=== PATIENT | male | born 1980 | race Caucasian/White ===

== ENCOUNTER 2020-04-27 10:24 | Observation (INO) ==
[2020-04-27] MEDS ORDERED: Nitro 2% OINT (Nitroglycerin) 1 INCH/PAK TOPICAL ONE ×2 (11:27→12:12)
[2020-04-27] MEDS ORDERED: Aspirin EC 81 mg TAB.EC (enteric coated) PO ONE (11:27)
[2020-04-27 11:55] LABS: ABS Eosinophils 0.1 10^3/ul (0-0.6); ABS Lymphocytes 1.8 10^3/ul (1.0-4.8); ABS Monocytes 0.4 10^3/ul (0-0.8); ABS Neutrophils 5.8 10^3/ul (1.5-7.7); Eosinophil % 1.1 %; Hematocrit 41 % (42-52); Hemoglobin 13.8 g/dL (14.0-18.0); Lymphocyte % 22.1 %; Mean Corpuscular HGB Conc 33 g/dL (31-36); Mean Corpuscular Hemoglobin 24 pg (27-31); Mean Corpuscular Volume 71 fL (80-94); Mean Platelet Volume 9.4 fL (7.4-10.4); Nucleated Red Blood Cells % 0.1; Platelet Count 246 10^3/uL (150-450); Red Blood Count 5.81 10^6 /uL (4.18-5.48); Red Cell Distribution Width 17 % (10-15); White Blood Count 8.1 10^3/uL (3.5-10.8)
[2020-04-27 12:19] LABS: Albumin 3.9 g/dL (3.2-5.2); Albumin/Globulin Ratio 1.2 (1-3); BUN/Creatinine Ratio 20.2 (8-20); EGFR African American 115.1 (>60); EGFR Non-African American 95.2 (>60); Globulin 3.2 g/dL (2-4); Magnesium 1.5 mg/dL (1.9-2.7); Potassium 3.2 mmol/L (3.5-5.0); Total Bilirubin 0.5 mg/dL (0.2-1.0); Total Protein 7.1 g/dL (6.4-8.9)
[2020-04-27 12:20] LABS: Troponin I 0.01 ng/mL (<0.03)
[2020-04-27] MEDS ORDERED: NS 0.9% 1000 ml BAG 1,000 ML IV ONE (12:33)
[2020-04-27] MEDS ORDERED: Potassium Chloride LIQUID 20 MEQ/15 ML LIQUID PO ONE (12:34)
[2020-04-27] MEDS ORDERED: Magnesium Sulfate 2 gm BAG 2 GM/50 ML BAG IVPB ONE (12:44)
[2020-04-27 12:51] LABS: Influenza A Molecular Negative (Negative); Influenza B Molecular Negative (Negative)
[2020-04-27] MEDS ORDERED: Iodixanol (CONTRAST) 320 MG/ML 100 ML SDV IV ONE (13:00)
[2020-04-27] MEDS ORDERED: Morphine 2 MG/ML SYRINGE IV ONE (14:17)
[2020-04-27] MEDS ORDERED: Ondansetron 4 mg VIAL 2 MG/ML 2 ml VIAL IV PRN (14:30)
[2020-04-27] MEDS ORDERED: Dextrose 50% Syringe 50 ml 25 GM/50 ML SYRINGE IV PUSH PRN (14:49)
[2020-04-27] MEDS ORDERED: Metoprolol Tartrate 5 mg VIAL 5 ml VIAL (1 mg/ml) IV ONE ×2 (14:50→18:42)
[2020-04-27 15:07] LABS: Troponin I 0.01 ng/mL (<0.03)
[2020-04-27] MEDS ORDERED: Morphine 2 MG/ML SYRINGE IV PRN (15:15)
[2020-04-27 15:22] LABS: Magnesium 1.7 mg/dL (1.9-2.7)
[2020-04-27 17:21] LABS: % Iron Saturation 7 % (15-55); Iron 30 ug/dL (50-212); Total Iron Binding Capacity 403 mcg/dL (250-450); Transferrin 288 mg/dL (203-362); Unsaturated Iron Binding < 388 ug/dL
[2020-04-27 17:40] LABS: Ferritin 19.4 ng/mL (24-336)
[2020-04-27] MEDS: Enoxaparin 40 MG/0.4 ML SYR SUBCUT SCH (18:09)
[2020-04-27] MEDS: NS 0.9% 1000 ml BAG 1,000 ML IV SCH (18:15)
[2020-04-27] MEDS ORDERED: Metoprolol Tartrate 5 mg VIAL 5 ml VIAL (1 mg/ml) ONE (18:44)
[2020-04-27] MEDS ORDERED: Nitro Patch/OINT Remove PATCH TOPICAL ONE (22:02)
[2020-04-28 07:31] LABS: BUN/Creatinine Ratio 22.4 (8-20); Calcium 8.8 mg/dL (8.6-10.3); EGFR African American 159.8 (>60); EGFR Non-African American 132.1 (>60); HDL Cholesterol 37.4 mg/dL; Magnesium 1.5 mg/dL (1.9-2.7); Potassium 3.1 mmol/L (3.5-5.0)
[2020-04-28] MEDS: Aspirin EC 81 mg TAB.EC (enteric coated) PO SCH (08:16)
[2020-04-28] MEDS: NS 0.9% 1000 ml BAG 1,000 ML IV SCH (08:27)
[2020-04-28] MEDS: Venlafaxine XR 75 mg PO SCH (08:29)
[2020-04-28 08:38] LABS: ABS Basophils 0.1 10^3/ul (0-0.2); ABS Eosinophils 0.2 10^3/ul (0-0.6); ABS Lymphocytes 2.9 10^3/ul (1.0-4.8); ABS Monocytes 0.5 10^3/ul (0-0.8); ABS Neutrophils 5.2 10^3/ul (1.5-7.7); Hematocrit 41 % (42-52); Hemoglobin 12.9 g/dL (14.0-18.0); Lymphocyte % 32.7 %; Mean Corpuscular HGB Conc 32 g/dL (31-36); Mean Corpuscular Hemoglobin 23 pg (27-31); Mean Corpuscular Volume 73 fL (80-94); Mean Platelet Volume 9.7 fL (7.4-10.4); Platelet Count 215 10^3/uL (150-450); Red Cell Distribution Width 16 % (10-15); White Blood Count 8.8 10^3/uL (3.5-10.8)
[2020-04-28] MEDS ORDERED: Perflutren Lipid Microsphere 3 ML VIAL ONE (10:12)
[2020-04-28] MEDS ORDERED: Potassium Chlor 20 meq TAB.ER PO ONE (12:14)
[2020-04-28] MEDS: Enoxaparin 40 MG/0.4 ML SYR SUBCUT SCH (14:42)
[2020-04-28] MEDS ORDERED: Iodixanol (CONTRAST) 320 MG/ML 100 ML SDV IV ONE (14:49)
[2020-04-28] MEDS ORDERED: Magnesium Sulfate IV 3 GM in NS 0.9% 100 ml BAG 100 ML IVPB ONE (19:04)
[2020-04-28] MEDS ORDERED: Insulin GLARGINE 100 un/ml 10 ml VIAL SUBCUT ONE (19:06)
[2020-04-29] MEDS ORDERED: Labetalol IV 5 MG/ML 20 ml VIAL IV PUSH ONE (01:18)
[2020-04-29 06:12] LABS: BUN/Creatinine Ratio 18.4 (8-20); Calcium 8.6 mg/dL (8.6-10.3); EGFR African American 138.2 (>60); EGFR Non-African American 114.2 (>60)
[2020-04-29] MEDS ORDERED: Magnesium Sulfate 2 gm BAG 2 GM/50 ML BAG IVPB ONE (06:17)
[2020-04-29] MEDS ORDERED: Potassium Chlor 20 meq TAB.ER PO ONE (06:17)
[2020-04-29] MEDS: KCL 10 MEQ/50 ML IVPREMIX 10 MEQ/50 ML BAG IV SCH ×3 (06:54→11:00)
[2020-04-29] MEDS: Aspirin EC 81 mg TAB.EC (enteric coated) PO SCH (08:08)
[2020-04-29] MEDS: Venlafaxine XR 75 mg PO SCH (08:08)
[2020-04-29] MEDS ORDERED: Perflutren Lipid Microsphere 3 ML VIAL ONE (13:33)
[2020-04-29] MEDS ORDERED: hydrALAZINE 20 mg/ml 1 ML Vial IV IV SLOW PU ONE ×3 (14:13→14:38)
[2020-04-29] MEDS ORDERED: hydrALAZINE 20 mg/ml 1 ML Vial IV ONE (14:18)
[2020-04-29 16:39] VITALS: BP 119/65
[2020-04-30] MEDS ORDERED: Spironolactone/HCTZ 25-25 mg PO SCH (09:00)
== END 2020-04-29 18:20 | disposition home or self-care (01) ==
LOC: MED 10:24 → ED 10:24 → MED 17:38 → MEDTELE 04-28 12:50
PROVIDERS: ADMIT Student in an Organized Health Care Education/Training Program; ATTEND Internal Medicine

== ENCOUNTER 2020-11-01 07:59 | Observation (INO) ==
[2020-11-01] MEDS ORDERED: NS 0.9% 1000 ml BAG 1,000 ML IV ONE (08:21)
[2020-11-01 08:57] LABS: ABS Basophils 0.1 10^3/ul (0-0.2); ABS Eosinophils 0.1 10^3/ul (0-0.6); ABS Monocytes 0.6 10^3/ul (0-0.8); ABS Neutrophils 8.3 10^3/ul (1.5-7.7); Eosinophil % 0.8 %; Hematocrit 41 % (42-52); Hemoglobin 13.5 g/dL (14.0-18.0); Lymphocyte % 18.1 %; Mean Corpuscular HGB Conc 33 g/dL (31-36); Mean Corpuscular Hemoglobin 23 pg (27-31); Mean Corpuscular Volume 71 fL (80-94); Mean Platelet Volume 9.1 fL (7.4-10.4); Platelet Count 243 10^3/uL (150-450); Red Cell Distribution Width 17 % (10-15); White Blood Count 11.1 10^3/uL (3.5-10.8)
[2020-11-01 09:05] LABS: Albumin 3.7 g/dL (3.2-5.2); Albumin/Globulin Ratio 1.1 (1-3); C Reactive Protein 45.88 mg/L (<8.01); Calcium 8.6 mg/dL (8.6-10.3); EGFR African American 113.7 (>60); EGFR Non-African American 93.9 (>60); Globulin 3.3 g/dL (2-4); Total Bilirubin 0.6 mg/dL (0.2-1.0)
[2020-11-01] MEDS ORDERED: Iodixanol (CONTRAST) 320 MG/ML 100 ML SDV IV ONE (09:16)
[2020-11-01] MEDS ORDERED: Lidocaine 2% PF 5 ML VIAL ONE (11:54)
[2020-11-01] MEDS ORDERED: Midazolam 2 mg/2 ml VIAL 1 mg/ml 2 ml VIAL (2 mg) ONE (11:54)
[2020-11-01] MEDS ORDERED: fentaNYL 250 mcg/5 ml 50 MCG/ML 5 ml VIAL (250 MCG) ONE (11:54)
[2020-11-01] MEDS ORDERED: Rocuronium 50 mg VIAL 10 mg/ml 5 ml VIAL (50 mg) ONE ×2 (11:54→14:34)
[2020-11-01] MEDS ORDERED: Propofol 10 MG/ML 20 ML BTL ONE ×2 (11:54→13:41)
[2020-11-01] MEDS ORDERED: Lidocaine 1% VIAL 10 MG/ML VIAL ONE (12:14)
[2020-11-01] MEDS ORDERED: ceFAZolin 2 GM PREMIX 2 GM/50 ML BAG ONE (12:22)
[2020-11-01] MEDS ORDERED: ceFAZolin 1 GM ADVAN 1 GM ADDV.VIAL IVPB ONE (12:22)
[2020-11-01] MEDS ORDERED: Labetalol IV 5 MG/ML 20 ml VIAL IV PUSH ONE ×2 (12:29→15:56)
[2020-11-01] MEDS ORDERED: Labetalol IV 5 MG/ML 20 ml VIAL ONE (12:31)
[2020-11-01] MEDS ORDERED: Buffered Lidocaine 1% SYRIN 1 ml INTRADERM ONE (12:31)
[2020-11-01] MEDS ORDERED: Famotidine IV 10 MG/ML 2 ml VIAL (20 mg) IV ONE (12:31)
[2020-11-01] MEDS ORDERED: Famotidine IV 10 MG/ML 2 ml VIAL (20 mg) ONE (12:40)
[2020-11-01] MEDS ORDERED: Lactated Ringers 1000 ml BAG 1,000 ML IV SCH (13:00)
[2020-11-01] MEDS ORDERED: Phenylephrine 40 mcg/mL 10mL (400mcg) SYRINGE ONE ×2 (13:41→14:18)
[2020-11-01] MEDS ORDERED: Succinylcholine 200 mg VIAL 20 mg/ml 10 ml VIAL (200 mg) ONE (13:41)
[2020-11-01] MEDS ORDERED: Acetaminophen IV 1 GM/100ML 100 ML ONE (13:41)
[2020-11-01] MEDS ORDERED: EPHEDrine (Pressors) 50 MG/ML VIAL ONE (13:46)
[2020-11-01] MEDS ORDERED: Bacitracin INJECTION 50,000 UNITS ONE (14:18)
[2020-11-01] MEDS ORDERED: Bacitracin OINTMENT TUBE ONE (14:18)
[2020-11-01] MEDS ORDERED: Ondansetron 4 mg VIAL 2 MG/ML 2 ml VIAL ONE (14:40)
[2020-11-01] MEDS ORDERED: Ondansetron 4 mg VIAL 2 MG/ML 2 ml VIAL IV PRN ×2 (14:53→15:04)
[2020-11-01] MEDS ORDERED: HYDROmorphone 1 MG/1 ML SYRINGE IV SLOW PU PRN (14:53)
[2020-11-01] MEDS ORDERED: ceFAZolin 2 GM (*##) 100 ML IVPB SCH (15:00)
[2020-11-01] MEDS ORDERED: fentaNYL 100 mcg/2 ml 50 MCG/ML VIAL IV PRN (15:04)
[2020-11-01] MEDS ORDERED: HYDROmorphone 1 MG/1 ML SYRINGE IV PRN (15:04)
[2020-11-01] MEDS ORDERED: Naloxone 0.4 mg VIAL 0.4 mg/ml 1 ml VIAL IV PRN (15:04)
[2020-11-01] MEDS ORDERED: Dextrose 50% Syringe 50 ml 25 GM/50 ML SYRINGE IV PUSH PRN (15:31)
[2020-11-01] MEDS: Lactated Ringers 1000 ml BAG 1,000 ML IVPB SCH (17:00)
[2020-11-01] MEDS: oxyCODONE/Acetamin 5/325 mg TAB PO PRN ×2 (17:22→22:24)
[2020-11-01] MEDS: Spironolactone/HCTZ 25-25 mg PO SCH (18:43)
[2020-11-01] MEDS ORDERED: ceFAZolin 2 GM in NS 100 MLS Q8H (Pharmacy Admix) IVPB SCH (22:00)
[2020-11-01] MEDS: ceFAZolin 2 GM PREMIX 2 GM/50 ML BAG IVPB SCH (22:22)
[2020-11-02] MEDS: Lactated Ringers 1000 ml BAG 1,000 ML IVPB SCH (03:08)
[2020-11-02] MEDS: oxyCODONE/Acetamin 5/325 mg TAB PO PRN (06:00)
[2020-11-02] MEDS: ceFAZolin 2 GM PREMIX 2 GM/50 ML BAG IVPB SCH (06:01)
[2020-11-02] MEDS: Spironolactone/HCTZ 25-25 mg PO SCH (08:52)
[2020-11-02] MEDS ORDERED: Insulin GLARGINE 100 un/ml 10 ml VIAL ONE (08:55)
[2020-11-02] MEDS ORDERED: Venlafaxine XR 75 mg PO SCH (09:00)
[2020-11-02] MEDS ORDERED: Insulin GLARGINE 100 un/ml 10 ml VIAL SUBCUT SCH (09:00)
[2020-11-02 11:29] VITALS: BP 141/90
[2020-11-02 12:30] LABS: Calcium 9.5 mg/dL (8.6-10.3); EGFR African American 118.2 (>60); EGFR Non-African American 97.7 (>60); Potassium 3.5 mmol/L (3.5-5.0)
== END 2020-11-02 13:15 | disposition home or self-care (01) ==
LOC: ED 07:59 → SDS 12:47 → SSU 12:47
PROVIDERS: ADMIT Surgery; ATTEND Surgery

== ENCOUNTER 2020-11-08 15:41 | Inpatient (IN) ==
[2020-11-08] MEDS ORDERED: Zosyn per Pharmacy NOTE FOLLOW UP SCH (17:00)
[2020-11-08] MEDS: NS 0.9% 1000 ml BAG 1,000 ML IV SCH (17:10)
[2020-11-08] MEDS ORDERED: Dextrose 50% Syringe 50 ml 25 GM/50 ML SYRINGE IV PUSH PRN (18:27)
[2020-11-08 18:50] LABS: ABS Basophils 0.1 10^3/ul (0-0.2); ABS Eosinophils 0.1 10^3/ul (0-0.6); ABS Lymphocytes 2.4 10^3/ul (1.0-4.8); ABS Monocytes 0.6 10^3/ul (0-0.8); ABS Neutrophils 9.4 10^3/ul (1.5-7.7); Eosinophil % 1.2 %; Hematocrit 42 % (42-52); Hemoglobin 13.8 g/dL (14.0-18.0); Lymphocyte % 18.9 %; Mean Corpuscular Hemoglobin 23 pg (27-31); Mean Corpuscular Hgb Conc 33 g/dL (31-36); Mean Corpuscular Volume 70 fL (80-94); Mean Platelet Volume 9.9 fL (7.4-10.4); Platelet Count 280 10^3/uL (150-450); Red Blood Count 5.96 10^6 /uL (4.18-5.48); Red Cell Distribution Width 17 % (10-15); White Blood Count 12.6 10^3/uL (3.5-10.8)
[2020-11-08 18:58] LABS: ALT 37 U/L (7-52); AST 28 U/L (13-39); Albumin/Globulin Ratio 1.1 (1-3); Alkaline Phosphatase 75 U/L (35-149); Anion Gap 8 mmol/L (2-11); Blood Urea Nitrogen 20 mg/dL (6-24); CO2 Carbon Dioxide 30 mmol/L (22-32); Calcium 9.8 mg/dL (8.6-10.3); Chloride 93 mmol/L (101-111); Creatinine, Serum 0.87 mg/dL (0.67-1.17); EGFR African American 118.2 (>60); EGFR Non-African American 97.7 (>60); Globulin 3.6 g/dL (2-4); Glucose 379 mg/dL (70-100); Potassium 3.2 mmol/L (3.5-5.0); Sodium 131 mmol/L (135-145); Total Protein 7.6 g/dL (6.4-8.9)
[2020-11-08 19:07] LABS: Troponin I 0.03 ng/mL (<0.03)
[2020-11-08] MEDS: Piperacillin/Tazobac ADVAN 3.375 GM in NS 0.9% 100 ml BAG 100 ML IV ONE (19:28)
[2020-11-08] MEDS: oxyCODONE/Acetamin 5/325 mg TAB PO PRN (19:28)
[2020-11-08 19:41] LABS: Rapid COVID-19 Molecular Undetected (Undetected)
[2020-11-08] MEDS: hydrALAZINE 20 mg/ml 1 ML Vial IV IV SLOW PU PRN (19:44)
[2020-11-08] MEDS: KCL 20 MEQ/100 ML IVPREMIX 20 MEQ/100 ML BAG IV SCH (20:02)
[2020-11-08 20:04] LABS: Magnesium 1.4 mg/dL (1.9-2.7)
[2020-11-08] MEDS: Magnesium Sulf 4 GM/100 ML IV 4,000 MG/100 ML BAG IVPB ONE (20:48)
[2020-11-09] MEDS: ZOSYN 3.375 GM Q8H per EXTENDED INFUSION IV SCH (00:07)
[2020-11-09] MEDS: hydrALAZINE 20 mg/ml 1 ML Vial IV IV SLOW PU PRN (00:38)
[2020-11-09] MEDS ORDERED: Bupivacaine 0.25% EPI 200,000 30 ML SDV ONE (07:14)
[2020-11-09] MEDS ORDERED: fentaNYL 100 mcg/2 ml 50 MCG/ML VIAL ONE (07:21)
[2020-11-09] MEDS ORDERED: Propofol 10 MG/ML 20 ML BTL ONE (07:21)
[2020-11-09] MEDS ORDERED: Rocuronium 50 mg VIAL 10 mg/ml 5 ml VIAL (50 mg) ONE (07:21)
[2020-11-09] MEDS ORDERED: Lidocaine 2% PF 5 ML VIAL ONE (07:21)
[2020-11-09] MEDS ORDERED: Midazolam 2 mg/2 ml VIAL 1 mg/ml 2 ml VIAL (2 mg) ONE (07:21)
[2020-11-09] MEDS ORDERED: Sugammadex 500 MG/5 ML 5 ml VIAL IV PUSH ONE ×2 (08:08→08:10)
[2020-11-09] MEDS ORDERED: Ondansetron 4 mg VIAL 2 MG/ML 2 ml VIAL ONE (08:10)
[2020-11-09] MEDS ORDERED: fentaNYL 100 mcg/2 ml 50 MCG/ML VIAL IV PRN (08:15)
[2020-11-09] MEDS ORDERED: Naloxone 0.4 mg VIAL 0.4 mg/ml 1 ml VIAL IV PRN (08:15)
[2020-11-09] MEDS ORDERED: Venlafaxine XR 75 mg PO SCH (09:00)
[2020-11-09 09:05] LABS: ABS Basophils 0.1 10^3/ul (0-0.2); ABS Eosinophils 0.2 10^3/ul (0-0.6); ABS Lymphocytes 3.1 10^3/ul (1.0-4.8); ABS Monocytes 0.7 10^3/ul (0-0.8); ABS Neutrophils 6.9 10^3/ul (1.5-7.7); Eosinophil % 1.7 %; Hematocrit 40 % (42-52); Lymphocyte % 27.9 %; Mean Corpuscular Hemoglobin 23 pg (27-31); Mean Corpuscular Hgb Conc 33 g/dL (31-36); Mean Corpuscular Volume 71 fL (80-94); Platelet Count 267 10^3/uL (150-450); Red Blood Count 5.57 10^6 /uL (4.18-5.48); Red Cell Distribution Width 17 % (10-15)
[2020-11-09 09:10] LABS: Albumin 3.4 g/dL (3.2-5.2); Albumin/Globulin Ratio 1.1 (1-3); Calcium 8.4 mg/dL (8.6-10.3); Creatinine, Serum 0.87 mg/dL (0.67-1.17); EGFR African American 118.2 (>60); EGFR Non-African American 97.7 (>60); Globulin 3.2 g/dL (2-4); Potassium 3.5 mmol/L (3.5-5.0); Total Bilirubin 0.7 mg/dL (0.2-1.0); Total Protein 6.6 g/dL (6.4-8.9)
[2020-11-09] MEDS: Venlafaxine XR 75 mg PO SCH (09:57)
[2020-11-09] MEDS: Spironolactone/HCTZ 25-25 mg PO SCH (09:57)
[2020-11-09 23:37] LABS: SARS Coronavirus-2 Undetected (Undetected)
[2020-11-10 06:08] LABS: Calcium 9.4 mg/dL (8.6-10.3); Potassium 3.8 mmol/L (3.5-5.0)
[2020-11-10 06:13] LABS: Creatinine, Serum 0.92 mg/dL (0.67-1.17); EGFR African American 110.8 (>60); EGFR Non-African American 91.6 (>60)
[2020-11-10 07:25] LABS: ABS Basophils 0.1 10^3/ul (0-0.2); ABS Eosinophils 0.2 10^3/ul (0-0.6); ABS Lymphocytes 2.9 10^3/ul (1.0-4.8); ABS Monocytes 0.6 10^3/ul (0-0.8); ABS Neutrophils 7.1 10^3/ul (1.5-7.7); Eosinophil % 1.6 %; Hematocrit 41 % (42-52); Hemoglobin 13.4 g/dL (14.0-18.0); Lymphocyte % 26.9 %; Mean Corpuscular Hemoglobin 23 pg (27-31); Mean Corpuscular Hgb Conc 33 g/dL (31-36); Mean Corpuscular Volume 71 fL (80-94); Mean Platelet Volume 9.3 fL (7.4-10.4); Platelet Count 262 10^3/uL (150-450); Red Blood Count 5.72 10^6 /uL (4.18-5.48); Red Cell Distribution Width 17 % (10-15); White Blood Count 10.9 10^3/uL (3.5-10.8)
[2020-11-10] MEDS: HYDROmorphone 1 MG/1 ML SYRINGE IV SLOW PU ONE (09:47)
[2020-11-10] MEDS: HYDROmorphone 1 MG/1 ML SYRINGE IV SLOW PU PRN (09:48)
[2020-11-10] MEDS: Lidocaine 2% JELLY 6 ML Topical TOPICAL ONE (09:55)
[2020-11-10] MEDS: Ondansetron 4 mg VIAL 2 MG/ML 2 ml VIAL IV PRN (11:42)
[2020-11-10] MEDS: hydrALAZINE 20 mg/ml 1 ML Vial IV IV SLOW PU ONE (11:42)
[2020-11-10] MEDS: cloNIDine 0.2 MG PATCH 0.2 MG/24 HR 7 DAY PATCH TRANSDERM SCH (14:10)
[2020-11-11] MEDS: NFT: Empagliflozin (NF) 25 MG TABLET PO SCH (09:19)
[2020-11-11 09:57] LABS: Creatinine, Serum 0.9 mg/dL (0.67-1.17); EGFR African American 113.7 (>60); EGFR Non-African American 93.9 (>60); Potassium 3.7 mmol/L (3.5-5.0)
[2020-11-11 10:54] LABS: ABS Basophils 0.1 10^3/ul (0-0.2); ABS Eosinophils 0.2 10^3/ul (0-0.6); ABS Lymphocytes 2.4 10^3/ul (1.0-4.8); ABS Monocytes 0.6 10^3/ul (0-0.8); Eosinophil % 1.2 %; Hematocrit 41 % (42-52); Hemoglobin 13.4 g/dL (14.0-18.0); Lymphocyte % 19.9 %; Mean Corpuscular Hemoglobin 23 pg (27-31); Mean Corpuscular Hgb Conc 33 g/dL (31-36); Mean Corpuscular Volume 71 fL (80-94); Platelet Count 270 10^3/uL (150-450); Red Blood Count 5.74 10^6 /uL (4.18-5.48); Red Cell Distribution Width 17 % (10-15); White Blood Count 12.3 10^3/uL (3.5-10.8)
[2020-11-11 11:11] VITALS: BP 153/87
== END 2020-11-11 12:50 | disposition home or self-care (01) ==
LOC: INTOOBSV 16:24 → SSU 16:24
PROVIDERS: ADMIT Surgery; ATTEND Surgery

== ENCOUNTER 2021-02-28 10:00 | Observation (INO) ==
[2021-02-28] MEDS ORDERED: NS 0.9% 1000 ml BAG 1,000 ML IV ONE (11:56)
[2021-02-28] MEDS ORDERED: Ondansetron 4 mg VIAL 2 MG/ML 2 ml VIAL IV ONE (11:57)
[2021-02-28 12:40] LABS: ABS Basophils 0.1 10^3/ul (0-0.2); ABS Lymphocytes 1.4 10^3/ul (1.0-4.8); ABS Monocytes 0.4 10^3/ul (0-0.8); ABS Neutrophils 8.4 10^3/ul (1.5-7.7); Eosinophil % 0.4 %; Hematocrit 42 % (42-52); Hemoglobin 14.4 g/dL (14.0-18.0); Lymphocyte % 13.2 %; Mean Corpuscular HGB Conc 34 g/dL (31-36); Mean Corpuscular Hemoglobin 26 pg (27-31); Mean Corpuscular Volume 78 fL (80-94); Mean Platelet Volume 8.7 fL (7.4-10.4); Platelet Count 265 10^3/uL (150-450); Red Blood Count 5.47 10^6 /uL (4.18-5.48); Red Cell Distribution Width 16 % (10-15); White Blood Count 10.2 10^3/uL (3.5-10.8)
[2021-02-28 12:52] LABS: Albumin 4.3 g/dL (3.2-5.2); Albumin/Globulin Ratio 1.2 (1-3); Globulin 3.5 g/dL (2-4); Magnesium 1.6 mg/dL (1.9-2.7); Potassium 2.9 mmol/L (3.5-5.0); Total Bilirubin 0.8 mg/dL (0.2-1.0); Total Protein 7.8 g/dL (6.4-8.9)
[2021-02-28 12:54] LABS: Troponin I 0.01 ng/mL (<0.03)
[2021-02-28] MEDS ORDERED: Potassium Chlor 20 meq TAB.ER PO ONE (13:04)
[2021-02-28] MEDS ORDERED: Magnesium Sulfate 2 gm BAG 2 GM/50 ML BAG IVPB ONE (13:16)
[2021-02-28 14:06] LABS: Rapid COVID-19 Molecular Undetected (Undetected)
[2021-02-28] MEDS: KCL 20 MEQ/100 ML IVPREMIX 20 MEQ/100 ML BAG IV SCH ×3 (14:53→20:14)
[2021-02-28] MEDS ORDERED: Midazolam 2 mg/2 ml VIAL 1 mg/ml 2 ml VIAL (2 mg) ONE (15:10)
[2021-02-28] MEDS ORDERED: fentaNYL 100 mcg/2 ml 50 MCG/ML VIAL ONE (15:10)
[2021-02-28] MEDS ORDERED: Propofol 10 MG/ML 20 ML BTL ONE (15:12)
[2021-02-28] MEDS ORDERED: Lidocaine 2% PF 5 ML VIAL ONE (15:13)
[2021-02-28] MEDS ORDERED: Ondansetron 4 mg VIAL 2 MG/ML 2 ml VIAL IV PRN (15:33)
[2021-02-28] MEDS ORDERED: Prochlorperazine 5 mg/ml 2 ml VIAL (10 mg) IV PRN (15:33)
[2021-02-28] MEDS ORDERED: Dextrose 50% Syringe 50 ml 25 GM/50 ML SYRINGE IV PUSH PRN (15:57)
[2021-02-28] MEDS: NS 0.9% 1000 ml BAG 1,000 ML IV SCH (16:00)
[2021-02-28] MEDS: Insulin GLARGINE 100 un/ml 10 ml VIAL SUBCUT SCH (17:01)
[2021-02-28 23:01] LABS: Potassium 3.4 mmol/L (3.5-5.0)
[2021-03-01] MEDS: NS 0.9% 1000 ml BAG 1,000 ML IV SCH ×2 (02:07→11:57)
[2021-03-01 07:03] LABS: Hematocrit 36 % (42-52); Hemoglobin 12.6 g/dL (14.0-18.0); Mean Corpuscular HGB Conc 35 g/dL (31-36); Mean Corpuscular Hemoglobin 27 pg (27-31); Mean Corpuscular Volume 78 fL (80-94); Mean Platelet Volume 8.9 fL (7.4-10.4); Platelet Count 239 10^3/uL (150-450); Red Blood Count 4.64 10^6 /uL (4.18-5.48); Red Cell Distribution Width 16 % (10-15)
[2021-03-01 07:11] LABS: % Iron Saturation 12 % (15-55); Iron 46 ug/dL (50-212); Total Iron Binding Capacity 384 mcg/dL (250-450); Transferrin 274 mg/dL (203-362); Unsaturated Iron Binding < 369 ug/dL
[2021-03-01 07:12] LABS: Anion Gap 6 mmol/L (2-11); Blood Urea Nitrogen 23 mg/dL (6-24); CO2 Carbon Dioxide 32 mmol/L (22-32); Calcium 9.2 mg/dL (8.6-10.3); Chloride 103 mmol/L (101-111); Glucose 97 mg/dL (70-100); Potassium 3.5 mmol/L (3.5-5.0); Sodium 141 mmol/L (135-145)
[2021-03-01 07:22] LABS: Ferritin 26.2 ng/mL (24-336)
[2021-03-01 07:26] LABS: Vitamin B12 518 pg/mL (180-914)
[2021-03-01] MEDS ORDERED: Spironolactone/HCTZ 25-25 mg PO SCH (09:00)
[2021-03-01] MEDS ORDERED: Venlafaxine XR 75 mg PO SCH (09:00)
[2021-03-01] MEDS ORDERED: Flu vaccine *QUAD* 2021-22* 0.5 ML SYRINGE IM ONE (09:00)
[2021-03-01] MEDS ORDERED: Propofol 10 MG/ML 20 ML BTL ONE ×2 (16:25→17:07)
[2021-03-01] MEDS ORDERED: Midazolam 5 mg/5 ml VIAL 1 mg/ml 5 ml VIAL (5 mg) ONE (16:25)
[2021-03-01] MEDS ORDERED: Lidocaine 2% PF 5 ML VIAL ONE (16:25)
[2021-03-01] MEDS ORDERED: fentaNYL 100 mcg/2 ml 50 MCG/ML VIAL ONE (16:25)
[2021-03-01] MEDS ORDERED: Ondansetron 4 mg VIAL 2 MG/ML 2 ml VIAL ONE (16:25)
[2021-03-01] MEDS ORDERED: Ketamine HCL 50 mg/ml 10 ml VIAL (500 MG) ONE (16:25)
[2021-03-01] MEDS ORDERED: Naloxone 0.4 mg VIAL 0.4 mg/ml 1 ml VIAL IV PRN (17:29)
[2021-03-01] MEDS: Insulin GLARGINE 100 un/ml 10 ml VIAL SUBCUT SCH (17:31)
[2021-03-01 20:01] VITALS: BP 116/59
[2021-03-02 20:29] LABS: Tissue Transglutaminase IgA Ab <1.2 U/mL
[2021-03-02 23:02] LABS: Immunoglobulin A 367 mg/dL (61 - 356)
== END 2021-03-02 | disposition home or self-care (01) ==
LOC: MEDTELE 10:00 → ED 10:00 → MEDTELE 14:57
PROVIDERS: ADMIT Hospitalist; ATTEND Hospitalist
PROC: O.GIEGD (2021-03-01 17:10)